=== PATIENT | male | born 1935 | race African-American/Black ===

== ENCOUNTER 2018-02-17 13:25 | Emergency (ER) | payer MEDICARE, BC ==
[2018-02-17 14:10] LABS: #Eosinphils 0.4 thou/uL (0.0-0.7); #Monocytes 0.5 thou/uL (0.11-0.59); #Neutrophils 3.8 thou/uL (1.40-6.50); %Basophils 0.3 % (0.0-1.0); %Eosinophils 7.4 % (0.0-10.0); %Lymphocytes 17.1 % (21.0-51.0); %Monocytes 8.6 % (0.0-10.0); %Neutrophils 66.7 % (42.0-75.0); Mean Corpuscular HGB CONC 32.9 g/dL (32.0-36.0); Mean Corpuscular Hemoglobin 27.9 pg (27.0-31.0); Mean Corpuscular Volume 84.7 fL (78.0-98.0); Mean Platelet Volume 6.8 fL (7.4-10.4); Platelet Count 395 thou/uL (130-400); RBC Distribution Width 12.4 % (11.5-14.5); Red Blood Cell (RBC) Count 4.29 mill/uL (4.70-6.10); White Blood Cell (WBC) Count 5.6 thou/uL (4.8-10.8)
[2018-02-17 14:30] LABS: Anion Gap 14 mmol/L (10-20); BUN (Urea Nitrogen) 20 mg/dL (8.4-25.7); Calc. Creatinine Clearance 0 mL/min (70-130); Calcium 8.9 mg/dL (7.8-10.44); Carbon Dioxide 22 mmol/L (23-31); Chloride 101 mmol/L (98-107); Estimated GFR-MDRD 67; Glucose 116 mg/dL (83-110); Potassium 3.2 mmol/L (3.5-5.1); Sodium 134 mmol/L (136-145)
[2018-02-17 14:36] LABS: CKMB 3.1 ng/mL (0-6.6); Troponin I Less than 0.010 ng/mL (< 0.028)
== END 2018-02-17 15:00 | disposition home or self-care (01) ==
LOC: ERS 13:25
DX: R55 Syncope and collapse (principal); I10 Essential (primary) hypertension; G30.9 Alzheimer's disease, unspecified; F02.80 Dementia in other diseases classified elsewhere, unspecified severity, without behavioral disturbance, psychotic disturbance, mood disturbance, and anxiety; J45.909 Unspecified asthma, uncomplicated; Z87.891 Personal history of nicotine dependence; Z79.899 Other long term (current) drug therapy; Z79.82 Long term (current) use of aspirin
CPT/HCPCS: 36415; 80048; 82553; 84484; 85025; 93005

== ENCOUNTER 2018-10-07 13:21 | Emergency (ER) | payer MEDICARE, BC ==
--- NOTE | 2018-10-07 14:08 | RAD ---
Exam: Chest one view HISTORY:Altered mental status. Comparison: 03/26/2015 FINDINGS: Cardiac silhouette:Normal size. Stable elongation of the aorta. Pulmonary vessels: Normal Costophrenic angles: Clear LUNGS: No masses or consolidation. Pneumothorax: None Osseous abnormalities: None IMPRESSION: No acute cardiopulmonary process.
--- NOTE | 2018-10-07 14:50 | CT ---
Exam: Head CT without contrast HISTORY: Altered mental status. Found down in the kitchen. COMPARISON: none FINDINGS: Hemorrhage: No intraparenchymal hemorrhage or extra-axial hematoma. Brain parenchyma: Age-appropriate atrophy. Cortical bird-white matter differentiation is preserved. W ousmane matter hypodensities due to chronic small vessel ischemic change. Ventricular system: Dilatation of ventricular system. The size of the ventricular system is greater t camacho expected for the overall degree of atrophy. Correlate for normal pressure hydrocephalus. Calvarium: Intact. Sinuses and mastoid air cells: Adequate aeration. IMPRESSION: 1. No intracranial post traumatic sequelae. 2. Chronic small vessel ischemic changes white matter 3. Atrophy, age-appropriate 4. Dilatation of the ventricular system, greater than expected for the overall degree of atrophy. Cor relate for normal pressure hydrocephalus.
[2018-10-07 14:58] LABS: Hemoglobin 12.6 g/dL (14.0-18.0); Mean Corpuscular HGB CONC 32.2 g/dL (32.0-36.0); Mean Corpuscular Hemoglobin 27.7 pg (27.0-31.0); Mean Corpuscular Volume 86.2 fL (78.0-98.0); Mean Platelet Volume 7.7 fL (7.4-10.4); Platelet Count 258 thou/uL (130-400); RBC Distribution Width 13.3 % (11.5-14.5); Red Blood Cell (RBC) Count 4.52 mill/uL (4.70-6.10); White Blood Cell (WBC) Count 8.8 thou/uL (4.8-10.8)
[2018-10-07 15:13] LABS: Band 3 % (5-11); Eosinophils 1 % (0-10); Lymphocytes 8 % (21-51); MDiff Complete? YES; Monocytes 3 % (0-10); Neutrophil 82 % (42-75); Platelet Morphology Comment Appears Adequate; RBC Morphology Normal
[2018-10-07 15:15] LABS: ALT (SGPT) 11 U/L (8-55); AST (SGOT) 14 U/L (5-34); Albumin 3.6 g/dL (3.4-4.8); Alkaline Phosphatase 22 U/L (40-150); Anion Gap 14 mmol/L (10-20); BUN (Urea Nitrogen) 21 mg/dL (8.4-25.7); Bilirubin, Total 0.3 mg/dL (0.2-1.2); Calc. Creatinine Clearance 0 mL/min (70-130); Calcium 8.4 mg/dL (7.8-10.44); Carbon Dioxide 16 mmol/L (23-31); Chloride 110 mmol/L (98-107); Estimated GFR-MDRD 82; Globulin 3.1 g/dL (2.4-3.5); Glucose 93 mg/dL (83-110); Protein, Total 6.7 g/dL (5.8-8.1); Sodium 136 mmol/L (136-145)
[2018-10-07 16:50] LABS: Bilirubin Negative (Negative); Blood, Urine Negative (Negative); Clarity CLOUDY (Clear); Glucose, Urine (Dipstick) Negative (Negative); Leukocyte Moderate (Negative); Nitrite Negative (Negative); Protein, Urine (Dipstick) Negative (Neg-Trace)
[2018-10-07 16:52] LABS: Bacteria/HPF 4+ HPF (None Seen); Hyaline Casts/LPF 4-6 HYALINE CAST LPF (0-3 Hyaline); RBC/HPF 0-3 HPF (0-3); Squamous Epithelial None Seen HPF (0-3); WBC/HPF 21-50 HPF (0-3)
== END 2018-10-07 18:14 | disposition home or self-care (01) ==
LOC: ERS 13:21
DX: N39.0 Urinary tract infection, site not specified (principal); G93.89 Other specified disorders of brain; I10 Essential (primary) hypertension; J45.909 Unspecified asthma, uncomplicated; G30.9 Alzheimer's disease, unspecified; F02.80 Dementia in other diseases classified elsewhere, unspecified severity, without behavioral disturbance, psychotic disturbance, mood disturbance, and anxiety; Z87.891 Personal history of nicotine dependence; Z79.899 Other long term (current) drug therapy; Z79.82 Long term (current) use of aspirin
CPT/HCPCS: 36415; 70450; 71045; 80053; 81003; 81015; 85025; 87077; 87086; 87186; 93005

== ENCOUNTER 2019-01-10 12:38 | Inpatient (IN) | payer MEDICARE, BC ==
[2019-01-10] MEDS ORDERED: Propofol 1,000 MG/100 ML VIAL IV ONE (12:49)
--- NOTE | 2019-01-10 12:55 | RAD ---
EXAM: Single view of the chest HISTORY: Altered mental status COMPARISON: 10/07/2018 FINDINGS: Single view of the chest shows a normal sized cardiomediastinal silhouette. An endotrachea l tube is seen with its tip approximately 3 cm from the angela. An NG tube is seen in the stomach. There is no evidence of consolidation, mass, or pleural effusion. The bones are unremarkable. IMPRESSION: Appropriate position of endotracheal tube and NG tube
[2019-01-10 13:00] LABS: Actual Bicarbonate (HCO3a) 18.8 mEq/L (22-28); Analyzer IN Cardio ER; Base Excess (BEa) -5.3 mEq/L (-2.0 to +3.0); CO2 Tension 32.3 mmHg (35.0-45.0); Calcium, Ionized 1.17 mmol/L (1.12-1.30); Hemoglobin (Hb) 12.8 g/dL (14.0-18.0); O2 Tension (PaO2) 288.9 mmHg (> 60.0); Potassium - ABG Lab 3.57 mmol/L (3.70-5.30); pH, Arterial 7.38 (7.35-7.45)
[2019-01-10 13:03] LABS: ALV-art Gradient 27.225 (0-20); Puncture Site RBA
[2019-01-10 13:04] LABS: #Eosinphils 0.2 thou/uL (0.0-0.7); #Lymphocytes 1.2 thou/uL (1.20-3.40); #Monocytes 0.6 thou/uL (0.11-0.59); %Basophils 0.4 % (0.0-1.0); %Eosinophils 3.2 % (0.0-10.0); %Lymphocytes 17.1 % (21.0-51.0); %Monocytes 8.2 % (0.0-10.0); %Neutrophils 71.1 % (42.0-75.0); Hemoglobin 12.3 g/dL (14.0-18.0); Mean Corpuscular HGB CONC 33.4 g/dL (32.0-36.0); Mean Corpuscular Hemoglobin 28.2 pg (27.0-31.0); Mean Corpuscular Volume 84.7 fL (78.0-98.0); Mean Platelet Volume 7.3 fL (7.4-10.4); Platelet Count 283 thou/uL (130-400); RBC Distribution Width 12.7 % (11.5-14.5); Red Blood Cell (RBC) Count 4.35 mill/uL (4.70-6.10)
[2019-01-10 13:17] LABS: ALT (SGPT) 10 U/L (8-55); AST (SGOT) 17 U/L (5-34); Albumin 3.5 g/dL (3.4-4.8); Alkaline Phosphatase 20 U/L (40-110); Anion Gap 11 mmol/L (10-20); BUN (Urea Nitrogen) 21 mg/dL (8.4-25.7); Bilirubin, Total 0.3 mg/dL (0.2-1.2); Calc. Creatinine Clearance 0 mL/min (70-130); Calcium 8.4 mg/dL (7.8-10.44); Carbon Dioxide 22 mmol/L (23-31); Chloride 111 mmol/L (98-107); Estimated GFR-MDRD Greater than 90; Globulin 2.5 g/dL (2.4-3.5); Glucose 99 mg/dL (83-110); Lipase 26 U/L (8-78); Sodium 139 mmol/L (136-145)
[2019-01-10 13:20] LABS: Acetaminophen Less than 6.0 mcg/mL (10.0-30.0); Alcohol Less than 10 mg/dL (Less than 10); Salicylate Less than 8.0 mg/dL (15.0-30.0)
[2019-01-10 13:25] LABS: Lactic Acid 2.4 mmol/L (0.5-2.2)
--- NOTE | 2019-01-10 13:33 | CT ---
CT head without contrast: Multiple axial tomograms obtained through the head without IV enhancement. INDICATIONS: Mental status change COMPARISON: 10/07/2018 FINDINGS: There is cortical atrophy with ventriculomegaly. These findings appear stable from the prior exam. Ch ronic ischemic white matter changes again noted. No evidence of intracranial mass, hemorrhage, edema, or infarct. Visualized sinuses and mastoids appear clear. Bony calvarium appears unremarkable. IMPRESSION: No acute finding
[2019-01-10 13:56] LABS: Bilirubin Negative (Negative); Blood, Urine Negative (Negative); Clarity Clear (Clear); Glucose, Urine (Dipstick) Normal (Negative); Leukocyte Negative Leu/uL (Negative); Nitrite Negative (Negative); Protein, Urine (Dipstick) Negative (Neg-Trace); Urobilinogen Normal mg/dL (Less than 2)
[2019-01-10 14:07] LABS: Amphetamine Not Detected (NotDetected); Barbiturates Screen Not Detected (NotDetected); Benzodiazepine Screen Not Detected (NotDetected); Cocaine Metabolite Screen Not Detected (NotDetected); Medtox Reader # READER 1; Methadone Not Detected (NotDetected); Methamphetamine Not Detected (NotDetected); Opiate Screen Not Detected (NotDetected); Phencyclidine (PCP) Not Detected (NotDetected); THC/Cannabinoid Screen Not Detected (NotDetected); Tricyclic Screen Not Detected (NotDetected)
[2019-01-10 14:08] LABS: Medtox Control Line Valid? VALID (VALID); Oxycodone Screen Not Detected (NotDetected)
[2019-01-10] MEDS ORDERED: Piperacillin/Tazobactam 4.5 GM VIAL ONE (14:14)
[2019-01-10] MEDS ORDERED: CCU Electrolyte Replacement 1 EACH FS ONE (15:06)
[2019-01-10] MEDS ORDERED: Ventilator Sedation Protocol 1 EACH FS ONE (15:06)
[2019-01-10] MEDS ORDERED: Propofol BOLUS 1,000 MG/100 ML VIAL IV PRN (15:42)
[2019-01-10] MEDS ORDERED: Morphine 2 MG/ML SYRINGE SLOW IVP PRN (15:42)
[2019-01-10] MEDS ORDERED: DISCONTINUE PREVIOUS NARCOTIC PAIN MEDICATIONS AND BENZODIAZEPINES FS SCH (15:42)
[2019-01-10] MEDS ORDERED: fentaNYL Citrate/PF 2,000 MCG in Sodium Chloride 0.9% 60 ML IV SCH (15:42)
[2019-01-10] MEDS ORDERED: Fentanyl BOLUS 250 ML IVPB PRN (15:42)
[2019-01-10] MEDS ORDERED: Lorazepam 2 MG/ML VIAL SLOW IVP PRN (15:42)
[2019-01-10] MEDS ORDERED: Magnesium 2 GM/50 ML 2 GM in Premix Bag 1 BAG IVPB PRN (15:43)
[2019-01-10] MEDS ORDERED: CCU ELECTROLYTE REPLACEMENT PROTOCOL FS PRN (15:43)
[2019-01-10] MEDS ORDERED: Potassium Chloride 40 MEQ in Premix Bag 1 BAG IVPB PRN (15:43)
[2019-01-10] MEDS ORDERED: Potassium Phosphate 9 MMOL in Sodium Chloride 0.9% 100 ML IVPB PRN (15:43)
[2019-01-10] MEDS ORDERED: Potassium Chloride 40 MEQ in Sodium Chloride 0.9% 250 ML 250 ML IVPB PRN (15:43)
[2019-01-10] MEDS ORDERED: Potassium Chloride 20 MEQ TAB PO PRN (15:43)
[2019-01-10] MEDS ORDERED: Potassium Phosphate 12 MMOL in Sodium Chloride 0.9% 250 ML 250 ML IV PRN (15:43)
[2019-01-10] MEDS ORDERED: Magnesium Oxide 400 MG TAB PO PRN ×2 (15:43)
[2019-01-10] MEDS ORDERED: PHOS-NAK 1 PKT PACK PO PRN ×2 (15:43)
[2019-01-10] MEDS ORDERED: Potassium Phosphate 15 MMOL in Sodium Chloride 0.9% 250 ML 250 ML IV PRN (15:43)
[2019-01-10] MEDS: Sodium Chloride 0.9% 1,000 ML IV SCH ×2 (16:34→20:58)
--- NOTE | 2019-01-10 16:38 | CON ---
DATE OF CONSULTATION: 01/10/2019 CONSULTING PHYSICIAN: Dr. Hermosillo. REASON FOR CONSULTATION: Acute respiratory failure related to mental status change. HISTORY OF PRESENT ILLNESS: Mr. Hardy is an 83-year-old male with advanced Alzheimer disease. According to his , he is bed-bound at home. He cannot take care of any of his activities of daily living, although he is still able to eat. Today, he was noted to be unresponsive. EMS was called and they could not wake him up en route. He was intubated upon arrival here due to unresponsiveness. He never had difficulties with his blood pressure. I think so far the workup has been negative. PAST MEDICAL HISTORY: 1. Dementia/Alzheimer's. 2. Hypertension. 3. Prostate cancer. PAST SURGICAL HISTORY: Prostate radiation. MEDICATIONS: Prior to admission, she says that he was taking 3 pills. She is not sure what. ALLERGIES: NONE. FAMILY MEDICAL HISTORY: Unremarkable. SOCIAL HISTORY: Former heavy alcohol user. Former heavy smoker. REVIEW OF SYSTEMS: Cannot be obtained as the patient is currently on mechanical ventilation. PHYSICAL EXAMINATION: VITAL SIGNS: Temperature is 95.4, pulse 66, blood pressure 138/78, O2 saturation 100%. He is currently intubated on mechanical ventilation. He is sedated on a low dose of propofol. GENERAL: He is generally unkempt and cachectic. HEENT: Pupils are reactive, sclerae anicteric, oropharynx dry. NECK: No adenopathy or JVD. LUNGS: Clear to auscultation anteriorly. CARDIOVASCULAR: S1, S2, regular without audible murmur. ABDOMEN: Soft, nontender to palpation. No hepatosplenomegaly. EXTREMITIES: No clubbing or cyanosis. He has severe muscle wasting. NEUROLOGIC: He will withdraw to pain all 4 extremities. LABORATORY DATA: White blood cell count 7, hematocrit 36.8, platelet count 283, with 71% neutrophils, 17% lymphocytes. PH of 7.38, pCO2 of 32, PO2 of 288. Sodium 139, potassium 5, chloride 111, CO2 of 22, BUN 21, creatinine 0.9, glucose 99. Alkaline phosphatase 20, lactate 2.4. His chest x-ray shows no mass, effusion, or infiltrate. His tox screen was negative. Alcohol screen was negative. Head CT was unremarkable. ASSESSMENT: 1. Altered mental status in a patient with advanced Alzheimer disease. Differential would be just the effects of the Alzheimer's versus dehydration versus sepsis. 2. Hypovolemic. 3. Acute respiratory failure requiring mechanical ventilation-I do not think he has a principal lung problem, rather he was intubated more or less because of unresponsiveness. PLAN: As the ER has started, the patient has been placed on empiric antibiotics and sepsis workup has begun. His head CT is negative. He will be supported on mechanical ventilation and his blood work will be monitored. I spoke with the family regarding code status. She is going to speak with other family members. 45 minutes critical care time Job ID: [id number] [facility]
[2019-01-10 17:55] VITALS: BMI 18.2
[2019-01-10] MEDS: Piperacillin/Tazobactam 3.375 GM in Sodium Chloride 0.9% 100 ML IVPB SCH ×2 (20:57)
[2019-01-10 21:22] LABS: CKMB 11.5 ng/mL (0-6.6)
[2019-01-10] MEDS: Propofol 1,000 MG/100 ML VIAL IV PRN (23:28)
[2019-01-11] MEDS: Piperacillin/Tazobactam 3.375 GM in Sodium Chloride 0.9% 100 ML IVPB SCH ×5 (00:19→19:57)
[2019-01-11] MEDS ORDERED: Vancomycin HCl 1 GM in Premix Bag 1 BAG IVPB SCH (01:00)
[2019-01-11] MEDS: Sodium Chloride 0.9% 1,000 ML IV SCH ×3 (05:51→21:18)
--- NOTE | 2019-01-11 06:22 | PRG ---
DATE OF SERVICE: 01/11/2019 TIME SPENT: 35 minutes of critical care time. SUBJECTIVE: The patient remains intubated on mechanical ventilation. He is sedated with propofol. It is difficult to get him to follow commands, but I am not sure what his baseline is. OBJECTIVE: VITAL SIGNS: Temperature 99, pulse 83, blood pressure 168/96, O2 saturation 100%. A 24-hour intake and output not quantitated at the time of this dictation. NEUROLOGIC: He is sedated. HEENT: Unremarkable. NECK: No adenopathy or JVD. LUNGS: Clear without wheezing. CARDIAC: S1, S2. Regular. ABDOMEN: Soft, nontender. EXTREMITIES: Severe muscle wasting. LABORATORY DATA: Labs are pending. His chest x-ray shows proper endotracheal tube position without evidence of mass, effusion, or infiltrate. ASSESSMENT: 1. Altered mental status, etiology not clear. This may be due to his advanced Alzheimer disease, sepsis, or hypovolemia at the time of admission. 2. Acute respiratory failure requiring mechanical ventilation. PLAN: We will leave him intubated another day or two and see how this sorts itself out. He will continue on antibiotics and we will follow his cultures. I will try to get the nursing staff to minimize his sedation. Job ID: [id number]
[2019-01-11 06:38] LABS: Actual Bicarbonate (HCO3a) 15.9 mEq/L (22-28); Base Excess (BEa) -7.7 mEq/L (-2.0 to +3.0); CO2 Tension 27.3 mmHg (35.0-45.0); Calcium, Ionized 1.12 mmol/L (1.12-1.30); Carboxyhemoglobin (COHb) 0.4 gm% (0.0-3.0); Hemoglobin (Hb) 11.8 g/dL (14.0-18.0); O2 Tension (PaO2) 156.9 mmHg (> 60.0); Potassium - ABG Lab 3.32 mmol/L (3.70-5.30); pH, Arterial 7.38 (7.35-7.45)
[2019-01-11 06:46] LABS: #Basophils 0.1 thou/uL (0.0-0.2); #Eosinphils 0.3 thou/uL (0.0-0.7); #Lymphocytes 0.7 thou/uL (1.20-3.40); #Monocytes 0.6 thou/uL (0.11-0.59); #Neutrophils 7.1 thou/uL (1.40-6.50); %Basophils 0.6 % (0.0-1.0); %Eosinophils 3.5 % (0.0-10.0); %Lymphocytes 8.1 % (21.0-51.0); %Monocytes 7.3 % (0.0-10.0); %Neutrophils 80.5 % (42.0-75.0); Hemoglobin 11.1 g/dL (14.0-18.0); Mean Corpuscular HGB CONC 33.2 g/dL (32.0-36.0); Mean Corpuscular Hemoglobin 27.9 pg (27.0-31.0); Mean Corpuscular Volume 83.9 fL (78.0-98.0); Mean Platelet Volume 7.2 fL (7.4-10.4); Platelet Count 294 thou/uL (130-400); RBC Distribution Width 12.6 % (11.5-14.5); Red Blood Cell (RBC) Count 3.99 mill/uL (4.70-6.10); White Blood Cell (WBC) Count 8.8 thou/uL (4.8-10.8)
[2019-01-11 07:06] LABS: Puncture Site LB
[2019-01-11 07:07] LABS: ALV-art Gradient 22.875 (0-20)
[2019-01-11 07:10] LABS: Anion Gap 13 mmol/L (10-20); BUN (Urea Nitrogen) 13 mg/dL (8.4-25.7); Calc. Creatinine Clearance 45 mL/min (70-130); Calcium 7.8 mg/dL (7.8-10.44); Carbon Dioxide 15 mmol/L (23-31); Chloride 112 mmol/L (98-107); Estimated GFR-MDRD 88; Glucose 102 mg/dL (83-110); Potassium 3.2 mmol/L (3.5-5.1); Sodium 137 mmol/L (136-145)
[2019-01-11] MEDS: Propofol 1,000 MG/100 ML VIAL IV PRN ×2 (08:48→17:49)
[2019-01-11] MEDS ORDERED: Pantoprazole 40 MG VIAL IVP SCH (09:00)
[2019-01-11] MEDS ORDERED: Enoxaparin Sodium 40 MG/0.4 ML SYRINGE SC SCH (09:00)
--- NOTE | 2019-01-11 10:04 | RAD ---
PORTABLE AP CHEST: Date: 01/11/19 HISTORY: Pneumonia. COMPARISON: 01/10/19. FINDINGS: Endotracheal tube and nasogastric tubes remain in place. The cardiac silhouette and pulmonary vascula ture are within normal limits. No pleural effusion or pneumothorax is appreciated. Chest is overall s table compared to prior exam. IMPRESSION: Stable chest. POS: OFF
[2019-01-11] MEDS: Pantoprazole 40 MG VIAL IVP SCH (11:31)
[2019-01-11] MEDS: Enoxaparin Sodium 40 MG/0.4 ML SYRINGE SC SCH (11:31)
[2019-01-11] MEDS ORDERED: FLU VACC TS2019-20(65YR UP)/PF 180 MCG/0.5 ML SYRINGE IM ONE (17:30)
[2019-01-11] MEDS: SIMBRINZA EA EYE SCH (19:58)
--- NOTE | 2019-01-11 23:15 | HP ---
CHIEF COMPLAINT: Unresponsive. HISTORY OF PRESENT ILLNESS: Mr. Hardy is an 83-year-old male with past medical history of severe dementia, was found to be unresponsive. According to , the patient is usually awake and try to communicate, but is nonambulatory, stays in the wheel chair or bed, has severe dementia, but today he is not able to talk. He was lethargic, although not unconscious. He ate very well last night and went to sleep, but this morning he is not responsive. His EMS was called. EMS found the patient unresponsive, but normal vital signs. In the ER, the patient was evaluated. The patient was still unresponsive and he was also in some respiratory distress. So, he was intubated in the ER to protect the airways and was given vancomycin and Zosyn for suspected sepsis and he is admitted for further evaluation and management. PAST MEDICAL HISTORY: 1. Severe dementia. 2. Hypertension. 3. Hyperlipidemia. 4. History of prostate cancer, status post radiation. PAST SURGICAL HISTORY: Nothing significant. CURRENT MEDICATIONS: 1. Amlodipine 5 mg daily. 2. Vitamin D 50,000 units once a week. 3. Tramadol p.r.n. 4. MiraLAX 17 g daily. 5. Colace 100 mg t.i.d. 6. Aspirin 81 mg daily. 7. Ferrous sulfate 325 mg daily. 8. Aricept 10 mg daily. ALLERGIES: NKDA. FAMILY HISTORY: Nothing contributory. SOCIAL HISTORY: The patient lives with his . No history of smoking. No history of alcohol. REVIEW OF SYSTEMS: Unable to obtain because the patient is intubated and sedated. PHYSICAL EXAMINATION: GENERAL: The patient is on the ventilator. VITAL SIGNS: Temperature 98, pulse 96, blood pressure 130/70. HEENT: Head is normocephalic. LUNGS: Air entry is present. No rales. HEART: S1 and S2 regular. ABDOMEN: Soft. No distention. No tenderness. Normal bowel sounds present. CENTRAL NERVOUS SYSTEM: The patient withdraws to pain in all extremities. LABORATORY DATA: CBC shows WBC 7, hemoglobin 12, hematocrit 36, platelets 283. Metabolic panel; sodium 139, potassium 5, chloride 111, CO2 21, BUN 21, creatinine 0.9, glucose 99. Troponin less than 0.010. BNP was 26. Urinalysis negative. Urine drug screen negative. ABG showed pH 7.38, pCO2 32, PO2 288, saturation 99%. ASSESSMENT: 1. Acute encephalopathy. 2. Acute respiratory failure. 3. Unresponsive. 4. Severe dementia. 5. History of hypertension. 6. History of prostate cancer, status post radiation. PLAN: 1. Ventilator support. 2. Sedation protocol. 3. Lovenox 40 subcu daily. 4. Protonix 40 mg IV piggyback daily. 5. Zosyn 3.375 g IV piggyback q.6 hours. 6. Vancomycin 1 g IV piggyback daily. 7. Pulmonary consult. Job ID: [id number]
[2019-01-12] MEDS: Vancomycin HCl 1 GM in Premix Bag 1 BAG IVPB SCH (00:39)
[2019-01-12] MEDS: Piperacillin/Tazobactam 3.375 GM in Sodium Chloride 0.9% 100 ML IVPB SCH ×4 (01:27→21:03)
[2019-01-12] MEDS: Sodium Chloride 0.9% 1,000 ML IV SCH ×4 (01:27→21:04)
[2019-01-12 05:36] LABS: #Eosinphils 0.5 thou/uL (0.0-0.7); #Monocytes 0.8 thou/uL (0.11-0.59); #Neutrophils 6.8 thou/uL (1.40-6.50); %Basophils 0.3 % (0.0-1.0); %Eosinophils 5.3 % (0.0-10.0); %Lymphocytes 10.6 % (21.0-51.0); %Monocytes 8.5 % (0.0-10.0); %Neutrophils 75.4 % (42.0-75.0); Mean Corpuscular HGB CONC 33.4 g/dL (32.0-36.0); Mean Corpuscular Hemoglobin 28.6 pg (27.0-31.0); Mean Corpuscular Volume 85.6 fL (78.0-98.0); Mean Platelet Volume 7.4 fL (7.4-10.4); Platelet Count 254 thou/uL (130-400); RBC Distribution Width 12.6 % (11.5-14.5)
[2019-01-12 05:59] LABS: Anion Gap 12 mmol/L (10-20); BUN (Urea Nitrogen) 11 mg/dL (8.4-25.7); Calc. Creatinine Clearance 53 mL/min (70-130); Calcium 7.4 mg/dL (7.8-10.44); Carbon Dioxide 17 mmol/L (23-31); Chloride 111 mmol/L (98-107); Estimated GFR-MDRD Greater than 90; Glucose 102 mg/dL (83-110); Potassium 3.1 mmol/L (3.5-5.1); Sodium 137 mmol/L (136-145)
[2019-01-12 08:24] LABS: Actual Bicarbonate (HCO3a) 19.5 mEq/L (22-28); Base Excess (BEa) -4.1 mEq/L (-2.0 to +3.0); CO2 Tension 30.6 mmHg (35.0-45.0); Carboxyhemoglobin (COHb) 0.1 gm% (0.0-3.0); Hemoglobin (Hb) 10.1 g/dL (14.0-18.0); O2 Tension (PaO2) 150.8 mmHg (> 60.0); Potassium - ABG Lab 3.57 mmol/L (3.70-5.30); pH, Arterial 7.42 (7.35-7.45)
[2019-01-12 08:25] LABS: Puncture Site RRA
[2019-01-12] MEDS: Enoxaparin Sodium 40 MG/0.4 ML SYRINGE SC SCH (09:04)
[2019-01-12] MEDS: Pantoprazole 40 MG VIAL IVP SCH (09:04)
[2019-01-12] MEDS: SIMBRINZA EA EYE SCH ×2 (09:08→21:05)
--- NOTE | 2019-01-12 12:38 | RAD ---
PORTABLE AP CHEST XRAY: HISTORY: Pneumonia. COMPARISON: 01/11/2019. FINDINGS: Endotracheal tube and nasogastric tube remain in place. Cardiac silhouette and pulmonary vasculature are within normal limits. Lungs remain clear. There has been no interval change when compared to p rior exam. IMPRESSION: Stable chest. POS: OFF
[2019-01-13 00:34] LABS: Vancomycin, Trough 12.1 ug/mL
[2019-01-13] MEDS: Vancomycin HCl 1.25 GM in Sodium Chloride 0.9% 250 ML 250 ML IVPB SCH (01:57)
[2019-01-13] MEDS: Piperacillin/Tazobactam 3.375 GM in Sodium Chloride 0.9% 100 ML IVPB SCH ×4 (02:03→20:15)
[2019-01-13 04:31] LABS: #Eosinphils 0.6 thou/uL (0.0-0.7); #Monocytes 1.3 thou/uL (0.11-0.59); #Neutrophils 7.2 thou/uL (1.40-6.50); %Eosinophils 5.5 % (0.0-10.0); %Lymphocytes 9.8 % (21.0-51.0); %Monocytes 13.2 % (0.0-10.0); %Neutrophils 71.5 % (42.0-75.0); Hemoglobin 9.8 g/dL (14.0-18.0); Mean Corpuscular HGB CONC 33.8 g/dL (32.0-36.0); Mean Corpuscular Hemoglobin 28.2 pg (27.0-31.0); Mean Corpuscular Volume 83.6 fL (78.0-98.0); Platelet Count 216 thou/uL (130-400); RBC Distribution Width 12.8 % (11.5-14.5); Red Blood Cell (RBC) Count 3.47 mill/uL (4.70-6.10); White Blood Cell (WBC) Count 10.1 thou/uL (4.8-10.8)
[2019-01-13 04:47] LABS: Anion Gap 12 mmol/L (10-20); BUN (Urea Nitrogen) 9 mg/dL (8.4-25.7); Calc. Creatinine Clearance 57 mL/min (70-130); Calcium 7.5 mg/dL (7.8-10.44); Carbon Dioxide 18 mmol/L (23-31); Chloride 110 mmol/L (98-107); Estimated GFR-MDRD Greater than 90; Glucose 112 mg/dL (83-110); Potassium 3.4 mmol/L (3.5-5.1); Sodium 137 mmol/L (136-145)
[2019-01-13] MEDS: Sodium Chloride 0.9% 1,000 ML IV SCH ×4 (05:13→23:40)
[2019-01-13] MEDS: Vancomycin HCl 1 GM in Premix Bag 1 BAG IVPB SCH (05:13)
[2019-01-13 08:05] LABS: Actual Bicarbonate (HCO3a) 18.6 mEq/L (22-28); Base Excess (BEa) -3.1 mEq/L (-2.0 to +3.0); Calcium, Ionized 1.08 mmol/L (1.12-1.30); Carboxyhemoglobin (COHb) 0.3 gm% (0.0-3.0); Hemoglobin (Hb) 10.3 g/dL (14.0-18.0); O2 Tension (PaO2) 147.4 mmHg (> 60.0); pH, Arterial 7.52 (7.35-7.45)
[2019-01-13 08:06] LABS: CO2 Tension 23.3 mmHg (35.0-45.0); Puncture Site RR
[2019-01-13 08:07] LABS: ALV-art Gradient 37.375 (0-20)
--- NOTE | 2019-01-13 10:01 | PRG ---
DATE OF SERVICE: 01/12/2019 SUBJECTIVE: Mr. Hardy remains mechanically ventilated. He will open his eyes. He really will not follow commands. His hemodynamics were stable overnight. OBJECTIVE: LUNGS: Remarkable for clear breath sounds. HEART: Regular rhythm. S1 and S2 are normal. He has grade 2/6 systolic murmur. ABDOMEN: Soft. EXTREMITIES: Without asymmetry. LABORATORY DATA: White count 9, hemoglobin 10, platelets 254. Sodium 137, potassium 3.1, chloride 111, bicarb 17, BUN 11, and creatinine 0.84. PH of 7.4, pCO2 of 30, pO2 of 150. IMAGING STUDIES: Chest radiographs clear. IMPRESSION: Status post intubation for altered mental status with improved mental status. PLAN: To dramatically decrease ventilatory support basically to pressure support and PEEP. I suspect he will do well with this, and if he is stable for 24 to 48 hours, we will consider extubation. Critical care time 30 minutes. Job ID: [id number]
[2019-01-13] MEDS: Pantoprazole 40 MG VIAL IVP SCH (10:19)
[2019-01-13] MEDS: Enoxaparin Sodium 40 MG/0.4 ML SYRINGE SC SCH (10:21)
[2019-01-13] MEDS: SIMBRINZA EA EYE SCH ×2 (10:22→20:55)
--- NOTE | 2019-01-13 12:16 | RAD ---
PORTABLE AP CHEST X-RAY: HISTORY: Pneumonia. COMPARISON: 01/12/2019 FINDINGS: Endotracheal tube and nasogastric tube remain stable in position. The cardiac silhouette and pulmonar y vasculature are within normal limits. The thoracic aorta does appear mildly ectatic and stable in s ize. The lungs remain clear. There has been no interval change from prior study. IMPRESSION: Stable chest. POS: OFF
--- NOTE | 2019-01-13 17:31 | PRG ---
DATE OF SERVICE: 01/13/2019 SUBJECTIVE: Mr. Hardy opens his eyes. He will not follow commands. OBJECTIVE: VITAL SIGNS: He is afebrile, heart rate 71, blood pressure 148/78, respiratory rate is anywhere from 6 to 8 breaths per minute to 15 breaths per minute. Intermittently, he has Arnaldo-Gutierrez pattern and sats off the apnea alarm. LUNGS: Clear. HEART: Regular rhythm. ABDOMEN: Soft. EXTREMITIES: Without asymmetry or edema. LABORATORY DATA: White count 10.1, hemoglobin 9.8, platelets 216. Sodium 137, potassium 3.4, chloride 110, bicarb 18, BUN 9, and creatinine 0.79. . Blood cultures negative. Urine cultures negative. I suspect this is a contaminant. IMPRESSION: 1. Status post intubation for altered mental status. 2. dementia, this is probably fairly advanced. His prognosis is dismal. I have not seen any family here. MEDICATIONS: Prior to extubation probably needs to be a family meeting with Palliative Care to determine what the next step is. At some point in time, he is just going to become too weak to breathe, but I doubt a tracheostomy will give him any meaningful addition to his life. CRITICAL CARE TIME: 30 minutes. Job ID: [id number]
[2019-01-14] MEDS: Piperacillin/Tazobactam 3.375 GM in Sodium Chloride 0.9% 100 ML IVPB SCH ×4 (01:12→19:37)
[2019-01-14] MEDS: Vancomycin HCl 1.25 GM in Sodium Chloride 0.9% 250 ML 250 ML IVPB SCH (01:49)
[2019-01-14 04:33] LABS: #Eosinphils 0.4 thou/uL (0.0-0.7); #Lymphocytes 0.8 thou/uL (1.20-3.40); #Monocytes 0.7 thou/uL (0.11-0.59); #Neutrophils 7.2 thou/uL (1.40-6.50); %Eosinophils 4.9 % (0.0-10.0); %Lymphocytes 8.2 % (21.0-51.0); %Monocytes 7.8 % (0.0-10.0); %Neutrophils 79.1 % (42.0-75.0); Hemoglobin 9.9 g/dL (14.0-18.0); Mean Corpuscular HGB CONC 33.5 g/dL (32.0-36.0); Mean Corpuscular Volume 83.5 fL (78.0-98.0); Mean Platelet Volume 8.2 fL (7.4-10.4); Platelet Count 252 thou/uL (130-400); Red Blood Cell (RBC) Count 3.53 mill/uL (4.70-6.10); White Blood Cell (WBC) Count 9.2 thou/uL (4.8-10.8)
[2019-01-14 04:35] LABS: Anion Gap 16 mmol/L (10-20); BUN (Urea Nitrogen) 8 mg/dL (8.4-25.7); Calc. Creatinine Clearance 56 mL/min (70-130); Calcium 7.8 mg/dL (7.8-10.44); Carbon Dioxide 17 mmol/L (23-31); Chloride 108 mmol/L (98-107); Estimated GFR-MDRD Greater than 90; Glucose 101 mg/dL (83-110); Potassium 4.8 mmol/L (3.5-5.1); Sodium 136 mmol/L (136-145)
[2019-01-14] MEDS: Sodium Chloride 0.9% 1,000 ML IV SCH ×3 (06:10→19:38)
[2019-01-14 07:06] LABS: Actual Bicarbonate (HCO3a) 21.2 mEq/L (22-28); Base Excess (BEa) -1.3 mEq/L (-2.0 to +3.0); CO2 Tension 28.2 mmHg (35.0-45.0); Calcium, Ionized 1.12 mmol/L (1.12-1.30); Carboxyhemoglobin (COHb) 0.9 gm% (0.0-3.0); Hemoglobin (Hb) 10.4 g/dL (14.0-18.0); O2 Tension (PaO2) 240.8 mmHg (> 60.0); Potassium - ABG Lab 3.71 mmol/L (3.70-5.30); pH, Arterial 7.49 (7.35-7.45)
[2019-01-14 07:07] LABS: Puncture Site RRA
[2019-01-14] MEDS: Enoxaparin Sodium 40 MG/0.4 ML SYRINGE SC SCH (07:44)
[2019-01-14] MEDS: Pantoprazole 40 MG VIAL IVP SCH (07:45)
[2019-01-14] MEDS: SIMBRINZA EA EYE SCH ×2 (07:45→21:07)
--- NOTE | 2019-01-14 07:53 | RAD ---
Chest one view HISTORY: Pneumonia. Follow-up. COMPARISON: 01/13/2019. FINDINGS: Cardiac silhouette and pulmonary vasculature are unremarkable. Midline. Lines and tubes are unchanged in position. Mild atelectasis at the left base is stable. No lobar consolidation or evidence of pneumothorax. IMPRESSION: Stable radiographic appearance of the chest.
--- NOTE | 2019-01-14 09:22 | PRG ---
DATE OF SERVICE: 01/14/2019 TIME SPENT: 35 minutes critical care time. SUBJECTIVE: The patient remains on mechanical ventilation. He will open his eyes, but will not follow any commands for me specifically. OBJECTIVE: VITAL SIGNS: Temperature is 98.8, pulse 109, blood pressure 170/114, 24-hour intake 3317, output 2830. HEENT: Unremarkable. NECK: No JVD. LUNGS: Coarse breath sounds. CARDIAC: S1 and S2. Regular. ABDOMEN: Soft. EXTREMITIES: Severe muscle wasting. LABORATORY DATA: White blood cell count 9.2, hematocrit 29.5, and platelet count 252. PH of 7.49, pCO2 of 28, pO2 of 240 on SIMV rate 6, tidal volume 450, PEEP 5, pressure support 10, FiO2 of 30%. Sodium 136, potassium 3.8, chloride 108, CO2 of 17, BUN 8, creatinine 0.8, glucose 101. IMAGING STUDIES: Chest x-ray shows no acute findings. ASSESSMENT: 1. Status post respiratory failure, thought secondary to altered mental status. 2. Severe underlying Alzheimer dementia. PLAN: I am not sure what we are treating with mechanical ventilation other than protecting the airway. His mental status continues to be altered, and again, I am not sure what his baseline is. I will go ahead and stop the vancomycin since no staph has grown from cultures. Hopefully, Palliative Care can meet with family and have some discussion regarding end-of-life issues. Dr. Hermosillo knows the family, and I will leave the DNR situation to him. Job ID: [id number]
--- NOTE | 2019-01-14 11:43 | PRG ---
DATE OF SERVICE: 01/12/2019 SUBJECTIVE: This is an 83-year-old male, who apparently is intubated for altered mental status. He has dementia. He is minimally functional. Vital signs apparently were unremarkable. Resp per mechanical ventilation. PAST MEDICAL HISTORY: prostate cancer. MEDICATIONS: Prior to admission, he is on; 1. Amlodipine. 2. Vitamin D. 3. Tramadol. 4. MiraLAX. 5. Colace. 6. Aspirin. 7. Iron. 8. Aricept. SOCIAL HISTORY: He is a nonsmoker and nondrinker. FAMILY HISTORY: Negative. ALLERGIES: NEGATIVE. REVIEW OF SYSTEMS: Not obtainable. PHYSICAL EXAMINATION: GENERAL: He is an intubated gentleman, who appears his age. VITAL SIGNS: Heart rate is in 80s, blood pressure 157/80, respiratory rates in the teens, minute volume 7 to 8 L a minute. HEAD AND NECK: Unremarkable. LUNGS: Clear. HEART: Regular rhythm. S1 and S2 are normal. Grade 2/6 systolic murmur. ABDOMEN: Soft and nontender without guarding or masses. EXTREMITIES: Without edema or asymmetry. NEURO: Grossly nonfocal, although he would wake up and follow commands. LABORATORY DATA: White count 9, hemoglobin 10, and platelets 254. Sodium 137, potassium 3.1, chloride 111, bicarb 17, BUN 11, and creatinine 0.84. PH 7.4, pCO2 of 30, and PO2 150. Drug screen was negative. Chest x-ray is clear. IMPRESSION: Altered mental status of unclear etiology. Cultures were 1/2 positive for gram-positive cocci. I suspect this is a contaminant. Urine culture is negative. We will decrease his ventilatory support more towards extubation in next 24 to 48 hours. CRITICAL CARE TIME: 30 minutes. Job ID: [id number] [facility]
--- NOTE | 2019-01-14 12:07 | PQF ---
STANLEY ODONNELL VENKAT R MD [id number] CLINICAL DOCUMENTATION IMPROVEMENT CLARIFICATION FORM: ICD-10 Updated PLEASE DO AN ADDENDUM TO THE PROGRESS NOTE WITH ANY DOCUMENTATION UPDATES OR ADDITIONS AND CARRY THROUGH TO DC SUMMARY. THANK YOU. DATE: 01/14 ATTN: DR. Lm BRANHAM Please exercise your independent, professional judgment in responding to the clarification form. Clinical indicators are provided on the bottom of this form for your review. Please check appropriate box(s) to clarify if the following diagnosis has been ruled in or ruled out: SEPSIS [ ] Ruled in diagnosis [ ] Continue to treat [ ] Resolved [ ] Ruled out diagnosis [ ] Cannot rule out diagnosis [ ] Other diagnosis [ y] Unable to determine In addition, please specify: Present on Admission (POA): [ y Yes [ ] No [ ] Unable to determine For continuity of documentation, please document condition throughout progress notes and discharge summary. Thank You. CLINICAL INDICATORS - SIGNS / SYMPTOMS / LABS ER PRESENTATION 01/10: INTUBATED 01/10, 1240 GCS: 8 T: 95.4 (CRITICORE TEMP) LACTIC ACID: 2.4 ATTENDING PN (YONSA) 01/11: RESPIRATORY FAILURE R/O SEPSIS; ACUTE ENCEPHALOPATHY; HYPOKALEMIA ATTENDING PN (YONAS) 01/12 & : RESPIRATORY FAILURE; ACUTE ENCEPHALOPATHY; HYPOKALEMIA PULM H&P 01/10 (MERARY): ASSESSMENT: AMS D/T ADVANCED ALZHEIMER VS SEPSIS VS HYPOVOLEMIA PULM PN 01/11 (MERARY): ASSESSMENT: AMS D/T ADVANCED ALZHEIMER VS SEPSIS VS HYPOVOLEMIA RISKS: ACUTE RESPIRATORY FAILURE (H&P 01/10 THADAREDDY, PN 01/11 - THADAREDDY) LACTIC ACIDOSIS (LAB RESULT 01/10) ACUTE ENCEPHALOPATHY (H&P 01/10 THADAREDDY: PN 01/11 - THADAREDDY) HYPOKALEMIA (THADAREDDY PN 01/11 - ) TREATMENT: MECHANICAL VENTILATION (01/10 - PRESENT; PHYSICIAN ORDER 01/10) PULMONARY CONSULT (01/10, PHYSICIAN ORDER) IV ANTIBIOTICS (ZOSYN 01/10 - PRESENT; VANC 01/13 - ; MEDICATION RECORD) IVF (NS 01/10-PRESENT; MEDICATION RECORD) THANK YOU! Jie (This form is maintained as a part of the permanent medical record) 2014 [employer]. All Rights Reserved Jie Camp RN, BSN [email or web address] Office: [phone] [facility]
--- NOTE | 2019-01-14 12:25 | PQF ---
STANLEY ODONNELL VENKAT R MD [id number] CLINICAL DOCUMENTATION IMPROVEMENT CLARIFICATION FORM: ICD-10 Updated PLEASE DO AN ADDENDUM TO THE PROGRESS NOTE WITH ANY DOCUMENTATION UPDATES OR ADDITIONS AND CARRY THROUGH TO DC SUMMARY. THANK YOU. Date: 01/14 ATTN: DR. Lm BRANHAM Please exercise your independent, professional judgment in responding to the clarification form. Clinical indicators are provided on the bottom of this form for your review. Please check appropriate box(s): [ y Protein Calorie Malnutrition: [ ] Mild [ ] Moderate [ y] Severe [ ] Other Malnutrition (please specify) __ [ ] Underweight without malnutrition [ ] Cachexia [ ] Other diagnosis [ ] Unable to determine In addition, please specify: Present on Admission (POA): [ y ] Yes [ ] No [ ] Unable to determine CLINICAL INDICATORS - SIGNS / SYMPTOMS / LABS BMI: 18.3 PULM H&P / (MERARY): PHY EXAM: CACHECTIC; EXTREMITIES: SEVERE MUSCLE WASTING PULM PN 01/11 (MERARY): PHY EXAM: EXTREMITIES: SEVERE MUSCLE WASTING NUTRITION ASSESSMENT 01/11: MODERATE TEMPORAL MUSCLE WASTING; NPO STATUS W/ NEED FOR TUBE FEEDING RISKS: ALZHEIMERS DEMENTIA (H&P THADAREDDY 01/10; PULMONOLOGY H&P 01/10, MERARY) BEDBOUND STATUS (PULMONOLOGY H&P 01/10, MERARY) TREATMENT: CREAM RIPENER CONSULT (PHYSICIAN ORDER, 01/11) Moderate Malnutrition (in acute illness) Energy Intake: <75% of estimated energy requirement for > 7 days Weight Loss: 1-2%/1 week; 5%/ 1 month; 7.5%/3 months Other: mild body fat loss; mild muscle mass loss; mild fluid accumulation; Severe Malnutrition (in acute illness) Energy Intake: < 50% of estimated energy requirement for > 5 days Weight Loss: >1-2%/1 week; >5%/1 month; >7.5%/3 months Other: moderate body fat loss; moderate muscle mass loss; moderate- severe fluid accumulation; measurably reduced medical director/head team physician strength Moderate Malnutrition (in chronic illness) Energy Intake: <75% of estimated energy requirement for >1 month Weight Loss: 5%/1 month; 7.5%/3 months; 10%/6 months; 20%/1 year Other: mild body fat loss; mild muscle mass loss; mild fluid accumulation Severe Malnutrition (in chronic illness) Energy Intake: <75% of estimated energy requirement for >1 month Weight Loss: >5%/1 month; >7.5%/3 months; >10%/6 months; >20%/1 year Other: severe body fat loss; severe muscle mass loss; severe fluid accumulation; measurably reduced medical director/head team physician strength THANK YOU! Jie (This form is maintained as a part of the permanent medical record) 2015 [employer]. All Rights Reserved Jie Camp RN, BSN [email or web address] Office: [phone] [facility]
--- NOTE | 2019-01-14 12:51 | PQF ---
STANLEY ODONNELL VENKAT R MD [id number] CLINICAL DOCUMENTATION IMPROVEMENT CLARIFICATION FORM: ICD-10 Updated PLEASE DO AN ADDENDUM TO THE PROGRESS NOTE WITH ANY DOCUMENTATION UPDATES OR ADDITIONS AND CARRY THROUGH TO DC SUMMARY. THANK YOU. DATE: 01/14 ATTN: DR. Lm BRANHAM Please exercise your independent, professional judgment in responding to the clarification form. Clinical indicators are provided on the bottom of this form for your review. Please check appropriate box(s): Acute Encephalopathy: Etiology: [ ] Metabolic [ ] Hypoxic [ ] Septic [ ] Unspecified [y ] in the setting of underlying dementia [ ] Other (please specify) [ ] Other diagnosis [ ] Unable to determine In addition, please specify: Present on Admission (POA): [ y] Yes [ ] No [ ] Unable to determine For continuity of documentation, please document condition throughout progress notes and discharge summary. Thank You. CLINICAL INDICATORS - SIGNS / SYMPTOMS / LABS / RESULTS AND LOCATION IN EMR ER PRESENTATION 01/10: INTUBATED ON ARRIVAL 01/10, 1240 GCS: 8 T: 95.4 ( CRITICORE TEMP) LACTIC ACID: 2.4 FINAL ER PHYSICIAN DIAGNOSES: AMS, LACTIC ACIDOSIS, RESP FAILURE ATTENDING H&P (YONAS) 01/10: ACCORDING TO , PATIENT IS USUALLY AWAKE & TRIES TO COMMUNICATE, BUT IS NONAMBULATORY, HAS SEVERE DEMENTIA, BUT TODAY HE IS NOT ABLE TO TALK. HE WAS LETHARGIC. HE ATE VERY WELL LAST NIGHT & WENT TO SLEEP, BUT THIS MORNING HE IS NOT RESPONSIVE. ASSESSMENT: ACUTE ENCEPHALOPATHY; ACUTE RESPIRATORY FAILURE ATTENDING PN (YONAS) 01/11: RESPIRATORY FAILURE R/O SEPSIS; ACUTE ENCEPHALOPATHY; HYPOKALEMIA ATTENDING PN (YONAS) 01/12 & : RESPIRATORY FAILURE; ACUTE ENCEPHALOPATHY; HYPOKALEMIA PULM H&P 01/10 (MERARY): ASSESSMENT: AMS D/T ADV ALZHEIMER VS SEPSIS VS HYPOVOLEMIA PULM PN 01/11 (MERARY): ASSESSMENT: AMS D/T ADV ALZHEIMER VS SEPSIS VS HYPOVOLEMIA RISKS: ACUTE RESPIRATORY FAILURE (H&P & PN YONAS 01/10-; PULMONOLOGY H&P 01/10, MERARY) LACTIC ACIDOSIS (ER REPORT 01/10) ALZHEIMER DEMENTIA (H&P THADAREDDY 01/10; PULMONOLOGY H&P 01/10, MERARY) TREATMENT: MECHANICAL VENTILATION (PHYSICIAN ORDER 01/10 - PRESENT) IVF (NS 01/10-PRESENT, MEDICATION RECORD) THANK YOU! Jie (This form is maintained as a part of the permanent medical record) 2014 [employer]. All Rights Reserved Jie Camp RN, BSN [email or web address] Office: [phone] [facility]
[2019-01-15] MEDS: Sodium Chloride 0.9% 1,000 ML IV SCH ×4 (01:17→22:53)
[2019-01-15] MEDS: Piperacillin/Tazobactam 3.375 GM in Sodium Chloride 0.9% 100 ML IVPB SCH ×4 (02:34→20:42)
[2019-01-15 04:33] LABS: #Eosinphils 0.6 thou/uL (0.0-0.7); #Lymphocytes 0.7 thou/uL (1.20-3.40); #Monocytes 0.5 thou/uL (0.11-0.59); #Neutrophils 4.5 thou/uL (1.40-6.50); %Basophils 0.1 % (0.0-1.0); %Eosinophils 9.2 % (0.0-10.0); %Lymphocytes 11.3 % (21.0-51.0); %Monocytes 8.4 % (0.0-10.0); Hemoglobin 9.6 g/dL (14.0-18.0); Mean Corpuscular HGB CONC 32.6 g/dL (32.0-36.0); Mean Corpuscular Hemoglobin 27.8 pg (27.0-31.0); Mean Corpuscular Volume 85.4 fL (78.0-98.0); Mean Platelet Volume 7.5 fL (7.4-10.4); Platelet Count 280 thou/uL (130-400); RBC Distribution Width 12.9 % (11.5-14.5); Red Blood Cell (RBC) Count 3.45 mill/uL (4.70-6.10); White Blood Cell (WBC) Count 6.3 thou/uL (4.8-10.8)
[2019-01-15 04:56] LABS: Anion Gap 9 mmol/L (10-20); BUN (Urea Nitrogen) 9 mg/dL (8.4-25.7); Calc. Creatinine Clearance 57 mL/min (70-130); Calcium 7.9 mg/dL (7.8-10.44); Carbon Dioxide 24 mmol/L (23-31); Chloride 107 mmol/L (98-107); Estimated GFR-MDRD Greater than 90; Glucose 91 mg/dL (83-110); Potassium 3.7 mmol/L (3.5-5.1); Sodium 136 mmol/L (136-145)
[2019-01-15] MEDS: Enoxaparin Sodium 40 MG/0.4 ML SYRINGE SC SCH (07:09)
[2019-01-15] MEDS: Pantoprazole 40 MG VIAL IVP SCH (07:10)
[2019-01-15] MEDS: SIMBRINZA EA EYE SCH ×2 (07:10→20:43)
[2019-01-15 07:12] LABS: Actual Bicarbonate (HCO3a) 22.4 mEq/L (22-28); Base Excess (BEa) -0.2 mEq/L (-2.0 to +3.0); CO2 Tension 29.6 mmHg (35.0-45.0); Calcium, Ionized 1.13 mmol/L (1.12-1.30); Carboxyhemoglobin (COHb) 0.3 gm% (0.0-3.0); Hemoglobin (Hb) 10.1 g/dL (14.0-18.0); O2 Tension (PaO2) 222.2 mmHg (> 60.0); Potassium - ABG Lab 3.47 mmol/L (3.70-5.30)
[2019-01-15 07:16] LABS: Puncture Site RR
--- NOTE | 2019-01-15 10:10 | PRG ---
DATE OF SERVICE: 01/15/2019 TIME SPENT: Thirty five minutes of critical time. SUBJECTIVE: The patient remains intubated on mechanical ventilation. He has been on spontaneous breathing for the last 24 hours. He is having occasional apneic spells. OBJECTIVE: VITAL SIGNS: Temperature is 98.1, pulse 84, blood pressure 167/90. Intake for 24 hours 3080, output 2339. HEENT: Unremarkable. NECK: No adenopathy or JVD. CHEST: Clear to auscultation. CARDIAC: S1 and S2, regular. ABDOMEN: Soft. EXTREMITIES: No edema. LABORATORY DATA: ABG; pH of 7.50, pCO2 of 29, pO2 of 222. White blood cell count 6.3, hematocrit 29.5, and platelet count 280. Sodium 136, potassium 3.7, chloride 107, CO2 of 24, BUN 9, creatinine 0.7, glucose 91. ASSESSMENT: 1. Acute respiratory failure requiring mechanical ventilation. 2. Central apnea. 3. Severe underlying Alzheimer-type dementia. PLAN: 1. Extubate and observe. 2. Keep oxygen at the lowest amount possible. Keep his O2 sats appropriate. 3. Continue antibiotics for the time being, although I am not convinced that he is actually infected. Job ID: [id number]
[2019-01-16] MEDS: Piperacillin/Tazobactam 3.375 GM in Sodium Chloride 0.9% 100 ML IVPB SCH ×4 (02:05→19:18)
[2019-01-16 05:34] LABS: Anion Gap 16 mmol/L (10-20); BUN (Urea Nitrogen) 7 mg/dL (8.4-25.7); Calc. Creatinine Clearance 55 mL/min (70-130); Calcium 8.4 mg/dL (7.8-10.44); Carbon Dioxide 19 mmol/L (23-31); Chloride 107 mmol/L (98-107); Estimated GFR-MDRD Greater than 90; Glucose 76 mg/dL (83-110); Potassium 3.7 mmol/L (3.5-5.1); Sodium 138 mmol/L (136-145)
[2019-01-16 05:53] LABS: Eosinophils 4 % (0-10); Hemoglobin 10.1 g/dL (14.0-18.0); Lymphocytes 5 % (21-51); MDiff Complete? YES; Mean Corpuscular HGB CONC 32.9 g/dL (32.0-36.0); Mean Corpuscular Hemoglobin 26.9 pg (27.0-31.0); Mean Corpuscular Volume 81.6 fL (78.0-98.0); Mean Platelet Volume 8.5 fL (7.4-10.4); Metamyelocyte 1 % (0-0); Monocytes 12 % (0-10); Neutrophil 78 % (42-75); Platelet Count 227 thou/uL (130-400); Platelet Morphology Comment Appears Adequate; RBC Distribution Width 12.9 % (11.5-14.5); Red Blood Cell (RBC) Count 3.76 mill/uL (4.70-6.10); White Blood Cell (WBC) Count 7.7 thou/uL (4.8-10.8)
[2019-01-16] MEDS: Sodium Chloride 0.9% 1,000 ML IV SCH (06:38)
--- NOTE | 2019-01-16 08:07 | PRG ---
DATE OF SERVICE: 01/16/2019 SUBJECTIVE: The patient did reasonably well after extubation yesterday. He will not follow commands. He does open his eyes to voice. OBJECTIVE: VITAL SIGNS: Temperature 98.4 pulse 107, blood pressure 168/96. Intake 1847, output 2061. HEENT: Unchanged. NECK: No JVD. CHEST: Clear. CARDIAC: S1, S2. Slightly tachycardic. ABDOMEN: Soft. EXTREMITIES: Severe muscle wasting. LABORATORY DATA: Sodium 138, potassium 3.7, chloride 107, CO2 of 19, BUN 7, creatinine 0.8, glucose 76. White blood cell count 7.6, hematocrit platelet count 227. ASSESSMENT: 1. Status post respiratory failure, requiring mechanical ventilation. 2. Severe Alzheimer's type dementia. 3. Central sleep apnea. PLAN: The patient will be transferred to telemetry. He seems to have a baseline tachycardia that will be monitored for the next day or two. I honestly believe that he probably needs to be in some type of palliative care program and he definitely needs a DNR order. Feeding tube may also need to be considered. Job ID: [id number]
[2019-01-16] MEDS: Enoxaparin Sodium 40 MG/0.4 ML SYRINGE SC SCH (08:10)
[2019-01-16] MEDS: Pantoprazole 40 MG VIAL IVP SCH (08:12)
[2019-01-16] MEDS: SIMBRINZA EA EYE SCH ×2 (08:24→20:13)
[2019-01-16] MEDS: Dextrose 5 %-0.45 % NaCl 1,000 ML IV SCH ×2 (08:51→20:13)
[2019-01-16] MEDS ORDERED: Chloraseptic Spray 180 ml Bottle PO PRN (14:50)
[2019-01-17] MEDS: Piperacillin/Tazobactam 3.375 GM in Sodium Chloride 0.9% 100 ML IVPB SCH ×4 (02:21→20:01)
--- NOTE | 2019-01-17 08:55 | PRG ---
DATE OF SERVICE: 01/17/2019 SUBJECTIVE: He is still awaiting transfer to the floor. There has been no acute events overnight. He is now DNR. OBJECTIVE: VITAL SIGNS: His temperature 99.1, pulse 90, blood pressure 135/70, and O2 saturation 100%. NEUROLOGIC: He will not respond to commands, just kind of shakes his head back and forth. NECK: Without adenopathy or JVD. LUNGS: Clear anteriorly. CARDIAC: S1 and S2. Regular. ABDOMEN: Soft. EXTREMITIES: No edema. LABORATORY DATA: No new labs were obtained today. ASSESSMENT: 1. Status post mechanical ventilation due to acute respiratory failure. 2. Severe Alzheimer's type dementia. 3. Central sleep apnea. PLAN: Plan is to be transferred to the regular medical floor. Today will be the last day with antibiotics and they will be stopped. Job ID: [id number]
[2019-01-17] MEDS: Enoxaparin Sodium 40 MG/0.4 ML SYRINGE SC SCH (09:31)
[2019-01-17] MEDS: Pantoprazole 40 MG VIAL IVP SCH (09:31)
[2019-01-17] MEDS: Dextrose 5 %-0.45 % NaCl 1,000 ML IV SCH (11:10)
[2019-01-17] MEDS: SIMBRINZA EA EYE SCH ×2 (11:10→20:02)
[2019-01-18] MEDS: Piperacillin/Tazobactam 3.375 GM in Sodium Chloride 0.9% 100 ML IVPB SCH (02:20)
[2019-01-18] MEDS: Dextrose 5 %-0.45 % NaCl 1,000 ML IV SCH ×2 (02:20→08:47)
[2019-01-18] MEDS: Enoxaparin Sodium 40 MG/0.4 ML SYRINGE SC SCH (08:47)
[2019-01-18] MEDS: SIMBRINZA EA EYE SCH ×2 (08:47→19:43)
[2019-01-18] MEDS: Pantoprazole 40 MG VIAL IVP SCH (08:47)
--- NOTE | 2019-01-18 09:40 | PRG ---
DATE OF SERVICE: 01/18/2019 SUBJECTIVE: The patient is doing relatively well. For the first time today, he actually talked to me. OBJECTIVE: VITAL SIGNS: On exam, temperature 98, pulse 80, respirations 16, O2 saturation 100%, and blood pressure 158/72. HEENT: Unremarkable. NECK: No adenopathy or JVD. LUNGS: Clear. CARDIAC: S1 and S2, regular. ASSESSMENT: 1. Alzheimer's type dementia. 2. Status post respiratory failure, requiring mechanical ventilation. PLAN: He is probably at his baseline. His antibiotics have been stopped. I think he is probably ready for discharge to the next level of care. No further Pulmonary recommendations and I will sign off. Job ID: [id number]
[2019-01-19] MEDS: Dextrose 5 %-0.45 % NaCl 1,000 ML IV SCH ×2 (04:33→17:05)
[2019-01-19] MEDS: Pantoprazole 40 MG VIAL IVP SCH (08:11)
[2019-01-19] MEDS: Enoxaparin Sodium 40 MG/0.4 ML SYRINGE SC SCH (08:11)
[2019-01-19] MEDS: SIMBRINZA EA EYE SCH ×2 (08:12→19:46)
[2019-01-19] MEDS ORDERED: cloNIDine 0.1 MG TAB PO PRN (17:11)
--- NOTE | 2019-01-20 02:56 | EKG ---
Test Reason : Blood Pressure : / mmHG Vent. Rate : 067 BPM Atrial Rate : 067 BPM P-R Int : 200 ms QRS Dur : 080 ms QT Int : 458 ms P-R-T Axes : 073 060 061 degrees QTc Int : 483 ms Normal sinus rhythm Prolonged QT Abnormal ECG Confirmed by JANELL ERAZO ([id number]), web editor LINDA LONG ([id number] on 01/20/2019 2:55:50 AM Referred By: Confirmed By:JANELL ERAZO
[2019-01-20] MEDS: Dextrose 5 %-0.45 % NaCl 1,000 ML IV SCH ×2 (06:07→20:06)
[2019-01-20] MEDS: SIMBRINZA EA EYE SCH ×2 (10:25→20:06)
[2019-01-20] MEDS: Enoxaparin Sodium 40 MG/0.4 ML SYRINGE SC SCH (10:39)
[2019-01-21] MEDS: Dextrose 5 %-0.45 % NaCl 1,000 ML IV SCH (06:28)
[2019-01-21 07:17] VITALS: BP 162/81; TEMP 98
[2019-01-21] MEDS: Enoxaparin Sodium 40 MG/0.4 ML SYRINGE SC SCH (08:05)
[2019-01-21] MEDS: SIMBRINZA EA EYE SCH (08:07)
== END 2019-01-21 18:02 | DRG 207 ==
LOC: ERS 12:38 → CCU 16:04 → T4-B 01-17 10:31
PROVIDERS: ADMIT Internal Medicine; ATTEND Internal Medicine
PROC: 5A1955Z Respiratory Ventilation, Greater than 96 Consecutive Hours (ICD-10-PCS; principal; 2019-01-10)
PROC: 0BH17EZ Insertion of Endotracheal Airway into Trachea, Via Natural or Artificial Opening (ICD-10-PCS; 2019-01-10)
PROC: 3E02340 Introduction of Influenza Vaccine into Muscle, Percutaneous Approach (ICD-10-PCS; 2019-01-12)
DX: J96.00 Acute respiratory failure, unspecified whether with hypoxia or hypercapnia (principal); E43 Unspecified severe protein-calorie malnutrition; G93.49 Other encephalopathy; Z68.1 Body mass index [BMI] 19.9 or less, adult; Z51.5 Encounter for palliative care; Z66 Do not resuscitate; G30.9 Alzheimer's disease, unspecified; F02.80 Dementia in other diseases classified elsewhere, unspecified severity, without behavioral disturbance, psychotic disturbance, mood disturbance, and anxiety; G47.31 Primary central sleep apnea; J45.909 Unspecified asthma, uncomplicated; E78.5 Hyperlipidemia, unspecified; Z85.46 Personal history of malignant neoplasm of prostate; Z92.3 Personal history of irradiation; Z79.899 Other long term (current) drug therapy; Z99.3 Dependence on wheelchair; Z79.82 Long term (current) use of aspirin; Z23 Encounter for immunization; Z78.1 Physical restraint status
CPT/HCPCS: 31500; 36415; 36416; 51702; 70450; 71045; 80048; 80053; 80202; 80306; 80307; 81003; 82140; 82553; 82805; 83605; 83690; 83880; 84484; 85025; 87040; 87086; 87149; 93005; 94002; 94003; 94640; 94760; 96365; 96366; 96368; C9113; J1650; J2270; J2543; J2704; J3370; J3411; J3490; J7050; J7620